=== PATIENT | female | born 1960 | race Caucasian/White ===

== ENCOUNTER → 2023-10-22 09:57 | Outpatient (BNVA) | payer MEDICARE, SELFPAY | PROVIDERS: PCP Registered Nurse; Referring Provider Registered Nurse; Visit Provider Psychiatry & Neurology Neurology | DX: G25.0 Essential tremor (principal); R41.3 Other amnesia; R29.898 Other symptoms and signs involving the musculoskeletal system | CPT/HCPCS: 99215 ==

== ENCOUNTER → 2024-01-21 14:31 | Outpatient (BNVA) | payer MEDICARE, SELFPAY | PROVIDERS: PCP Registered Nurse; Visit Provider Psychiatry & Neurology Neurology | DX: R41.3 Other amnesia (principal); R13.10 Dysphagia, unspecified; G25.0 Essential tremor | CPT/HCPCS: 99215 ==